=== PATIENT | female | born 1995 | race Caucasian/White ===

== ENCOUNTER 2018-07-16 08:00 | Emergency (ER) | payer OTHER ==
--- NOTE | 2018-07-16 08:48 | EDPHY ---
HPI/HX/ROS/PE/MDM Narrative: CHIEF COMPLAINT: Sore throat, swollen tonsils HPI: The patient is a 22 y/o female who was recently diagnosed with mononucleosis arriving with her mother complaining of a sore throat and swollen tonsils. Three weeks ago she developed a sore throat and lightheadedness. Initial strep testing was negative. She went to [facility] on Wednesday , 5 days ago, and was diagnosed with mono. She has been taking Advil and NyQuil for symptoms. She feels her symptoms are worsening and now her tonsils "are really swollen to the point where they're gagging me and I want to throw up." She's had difficulty sleeping and is scared she won't be able to breathe if the swelling worsens, though she denies any current difficulty breathing or swallowing. No abdominal pain, vomiting, diarrhea, fever, dyspnea. REVIEW OF SYSTEMS: A comprehensive 10 system review of systems is otherwise negative aside from elements mentioned in the history of present illness. PMH: Vocal cord dysfunction 2 years ago with no persisting issues SOCIAL HISTORY: Mother at bedside. Lives in [place]. PCP: Dr. Cole. PHYSICAL EXAM: General:Patient is alert, in no acute distress. ENT:Eyes are normal to inspection. ENT inspection shows symmetric bilateral tonsillomegaly without exudate, drooling, muffled voice, or stridor. Neck: Normal inspection. Full range of motion. Respiratory:No respiratory distress. Breath sounds normal bilaterally. Cardiovascular: Regular rate and rhythm. Strong peripheral pulses. Normal cap refill. Abdomen:The abdomen is nontender to palpation. There are no peritoneal signs. Back: Normal to inspection. No tenderness to palpation. Skin: Normal color. No rash. Warm and dry. Extremities: Normal appearance. Full range of motion. Neuro: Oriented x3. Normal motor function. Normal sensory function. ED Course: This is a normally healthy 22 y/o female with recent diagnosis of mononucleosis complaining of worsening throat pain and swollen tonsils with associated nausea. On exam she has bilateral tonsillomegaly without exudate, drooling, muffled voice, or stridor. She is afebrile. Plan for treatment with IV, 1L IV NS , 10mg IM Decadron. Reassessed patient. She feels much better. She will be discharged with standard supportive care instructions and ENT follow up within 1 week. Return precautions discussed. MDM: I see no signs of [employer]IT[employer] C[employer], epiglottitis, neck abscess, severe dehydration or airway obstruction. - Data Points Laboratory Results: 07/16/18 07/16/18 Unknown 08:10 Group A Strep Screen NEGATIVE (NEGATIVE) Group A Strep DNA Pending Medications Given: Discontinued Medications Dexamethasone (Decadron Injection) 10 mg IVP EDNOW ONE Stop: 07/16/18 08:53 Last Admin: 07/16/18 09:04 Dose: 10 mg Sodium Chloride (Ns) 1,000 mls @ 0 mls/hr IV EDNOW ONE; Wide Open PRN Reason: Protocol Stop: 07/16/18 08:52 Last Admin: 07/16/18 09:04 Dose: 1,000 mls General Time Seen by Provider: 07/16/18 08:31 Initial Vital Signs: Initial Vital Signs Temperature (C) 36.6 C 07/16/18 08:02 Heart Rate 101 H 07/16/18 08:02 Respiratory Rate 16 07/16/18 08:02 Blood Pressure 113/67 07/16/18 08:02 O2 Sat (%) 95 07/16/18 08:02 O2 Delivery Mode Room Air Allergies/Adverse Reactions: amoxicillin trihydrate [From Augmentin] Allergy (Verified 06/01/15 20:18) potassium clavulanate [From Augmentin] Allergy (Verified 06/01/15 20:18) Home Medications: Medication Instructions Recorded NK [No Known Home Meds] 07/16/18 Departure - Departure Disposition: Home, Routine, Self-Care Clinical Impression: Mononucleosis, Tonsillar hypertrophy Condition: Good Instructions: Mononucleosis (ED) Additional Instructions: 1. Continue using Tylenol and ibuprofen as directed for symptoms. Many over-the- counter cold medications contain acetaminophen (the active ingredient in Tylenol ). Be careful not to exceed maximum dosing of acetaminophen. 2. Other [id number]-[id number] remedies such as hot tea are okay if they are helpful for symptoms. 3. Follow up with ENT if symptoms have not begun to improve over the next week. Symptoms from mono can last several weeks. 4. Return to the ED for difficulty breathing, inability to swallow, or other worsening of condition. Adult Pain & Fever Control: We recommend Acetaminophen (Tylenol) and Ibuprofen (Motrin,Advil) for pain and fever control. When fever is high or pain severe, both drugs can be used at the same time, but at different intervals. Please note the time differences. Your dose is: Acetaminophen 650mg every 4 to 6 hours Ibuprofen 600mg every 8 hours with food Note: do not take Acetaminophen with Hydrocodone (Vicodin, Lortab) or Oxycodone (Percocet). These medications also contain Acetaminophen. No more than 3000mg of Acetaminophen should be taken in 24 hours (for an adult). Referrals: Holli Cole MD [Primary Care Provider] - As per Instructions Lexx Sheikh MD [Medical Doctor] - As per Instructions Report Scribed for: Lexx Jones Report Scribed by: Yvonne Bhakta Date of Report: 07/16/18 Time of Report: 08:42 Physician Review and Approval Statement: Portions of this note were transcribed by an ED scribe. I personally performed the history, physical exam, and medical decision making; and confirm the accuracy of the information in the transcribed note.
[2018-07-16] MEDS ORDERED: NS 1,000 ML IV ONE (08:51)
[2018-07-16] MEDS ORDERED: DEXAMETHASONE 10 MG/ML VIAL IVP ONE (08:52)
[2018-07-16] MEDS ORDERED: DEXAMETHASONE 4 MG/ML VIAL ONE (09:01)
[2018-07-16 10:10] VITALS: BP 111/63
== END 2018-07-16 10:41 | disposition home or self-care (01) ==
DX: J35.1 Hypertrophy of tonsils (principal); B27.90 Infectious mononucleosis, unspecified without complication; E86.9 Volume depletion, unspecified
CPT/HCPCS: 96374; J1100